=== PATIENT | female | born 1990 | race Caucasian/White ===

== ENCOUNTER 2017-11-05 19:29 | Outpatient (CLI) | END 2017-11-06 01:40 | disposition home or self-care (01) ==

== ENCOUNTER 2017-12-17 22:46 | Inpatient (IN) | END 2017-12-19 16:53 | disposition home or self-care (01) | DRG 778 ==

== ENCOUNTER 2017-12-31 21:48 | Outpatient (CLI) | END 2018-01-01 14:00 | disposition home or self-care (01) ==

== ENCOUNTER 2018-01-18 21:02 | Outpatient (CLI) | END 2018-01-18 23:50 | disposition home or self-care (01) ==

== ENCOUNTER 2018-01-26 10:54 | Inpatient (IN) | END 2018-01-28 17:46 | disposition home or self-care (01) | DRG 775 ==